=== PATIENT | female | born 1985 | race Caucasian/White ===

== ENCOUNTER → 2023-06-24 17:04 | Outpatient (REF) | payer BC, SELFPAY | LOC: RAD 17:04 | PROVIDERS: ATTENDING PHYSICIAN Physician Assistant Medical; FAMILY PHYSICIAN Emergency Medicine | DX: M54.2 Cervicalgia (principal) | CPT/HCPCS: 72052 ==

== ENCOUNTER → 2023-07-09 09:00 | Outpatient (REF) | payer BC, SELFPAY | LOC: WDC 09:00 | PROVIDERS: ATTENDING PHYSICIAN Obstetrics & Gynecology Gynecology | DX: N63.10 Unspecified lump in the right breast, unspecified quadrant (principal); N63.11 Unspecified lump in the right breast, upper outer quadrant | CPT/HCPCS: 76642; 77062; 77066 ==

== ENCOUNTER → 2023-07-15 15:16 | Outpatient (REF) | payer BC, SELFPAY | LOC: HWRAD 15:16 | PROVIDERS: ATTENDING PHYSICIAN Emergency Medicine | DX: E07.89 Other specified disorders of thyroid (principal) | CPT/HCPCS: 76536 ==

== ENCOUNTER 2023-11-24 02:43 | Emergency (ER) | payer BC, SELFPAY ==
[2023-11-24 02:43] VITALS: BP 154/94
--- NOTE | 2023-11-24 03:30 | ED.GENMED ---
History of Present Illness
<Juan C Alejandro [facility] - Last Filed: 11/24/23 05:57>
General
Chief Complaint: Abdominal Symptoms
Time Seen by Provider: 11/24/23 03:11
History of Present Illness
History of Present Illness:
Patient is a 38 y/o female with no significant PMHx presenting with urinary sx x6 days. She states on she began to experience left flank discomfort, dysuria, and incomplete emptying. She states these symptoms were mild put continued to
persist. She also states she was experiencing increased bloating, gas, and epigastric discomfort after meals. She states she started taking omeprazole with no relief. She states she went to an urgent care yesterday and they got a urine dipstick and
started her on Bactrim. She states that around 01:30am this morning she started experiencing some heart palpitations and suprapubic discomfort with urination. She states she is still experiencing left flank pressure. She states she no longer has
dysuria or incomplete emptying. She states that one week ago she had some spotting after intercourse which was unusual for her. She states she started a new control 4 months ago and her periods have been irregular. She denies any vagina
discharge, hematuria, fever, nausea, vomiting, SOB, chest pain.
Phy Exam
<Juan C Alejandro [facility] - Last Filed: 11/24/23 05:57>
Physical Exam
Physical Exam:
GENERAL: Alert , in no apparent distress
EYE: pupils equal and reactive
Throat: Airway intact, no exudates
NECK: Supple, no significant adenopathy.
CARDIAC: Regular rate and rhythm .
LUNGS: Clear breath sounds bilaterally, no acute respiratory distress, no wheezes/rales/rhonchi
ABDOMEN: Mild diffuse abdominal discomfort with palpation. Abdomen is soft and nondistended. No cva tenderness.
NEUROLOGICAL: Alert and oriented, no focal neuro deficits
SKIN: Warm and dry, skin intact.
MUSCULOSKELETAL: No edema, well perfused.
PSYCH: Normal and appropriate interaction.
Course
<Juan C Aljeandro [facility] - Last Filed: 11/24/23 05:57>
Orders/Labs/Results
Orders:
Orders
11/24/23 03:54
EKG [Electrocardiogram (*1)] Urgent
Reason for Study: Palpitations
11/24/23 03:57
0.9% Sodium Chloride 1000 ml [Nss] 1,000 ml IV BOLUS
11/24/23 04:29
CT Abd/pel Without Iv Or Oral Urgent
Comment:
Reason For Exam: left flank pain, hematuria
11/24/23 04:31
Complete Blood Count/With Diff Urgent
Comprehensive Metabolic Panel Urgent
HCG, Serum Qualitative Screen Urgent
Magnesium Urgent
PTT Urgent
Prothrombin Time Urgent
TSH Urgent
Troponin I Urgent
11/24/23 04:36
Urinalysis Reflex To Culture Urgent
Date Specimen was Collected: 11/24/23
Time Specimen was Collected: 04:32
11/24/23 04:42
Test Result ONCE
11/24/23 04:44
Add On- LAB Urgent
Tests Added?: serum hcg
11/24/23 05:52
Magnesium Citrate [Citroma] 300 ml PO ONCE ONE
Abnormal Lab Results
11/24/23
04:31
Glucose 108 H mg/dl
(70-99)
ALT 73 H U/L
(0-35)
11/24/23 04:31
11/24/23 04:31
Vital Signs
Initial and Last Documented VS:
Initial Vital Signs
Temp Pulse Resp BP Pulse Ox
99 F 100 20 154/94 98
11/24/23 02:43 11/24/23 02:43 11/24/23 02:43 11/24/23 02:43 11/24/23 02:43
Last Documented Vital Signs
Temp Pulse Resp BP Pulse Ox
99 F 92 16 123/95 97
11/24/23 02:43 11/24/23 04:30 11/24/23 04:30 11/24/23 04:29 11/24/23 04:30
<Jose Enrique Sam, DO - Last Filed: 11/24/23 06:09>
Orders/Labs/Results
Orders:
Orders
11/24/23 03:54
EKG [Electrocardiogram (*1)] Urgent
Reason for Study: Palpitations
11/24/23 03:57
0.9% Sodium Chloride 1000 ml [Nss] 1,000 ml IV BOLUS
11/24/23 04:29
CT Abd/pel Without Iv Or Oral Urgent
Comment:
Reason For Exam: left flank pain, hematuria
11/24/23 04:31
Complete Blood Count/With Diff Urgent
Comprehensive Metabolic Panel Urgent
HCG, Serum Qualitative Screen Urgent
Magnesium Urgent
PTT Urgent
Prothrombin Time Urgent
TSH Urgent
Troponin I Urgent
11/24/23 04:36
Urinalysis Reflex To Culture Urgent
Date Specimen was Collected: 11/24/23
Time Specimen was Collected: 04:32
11/24/23 04:42
Test Result ONCE
11/24/23 04:44
Add On- LAB Urgent
Tests Added?: serum hcg
11/24/23 05:52
Magnesium Citrate [Citroma] 300 ml PO ONCE ONE
Abnormal Lab Results
11/24/23
04:31
Glucose 108 H mg/dl
(70-99)
ALT 73 H U/L
(0-35)
11/24/23 04:31
11/24/23 04:31
Vital Signs
Initial and Last Documented VS:
Initial Vital Signs
Temp Pulse Resp BP Pulse Ox
99 F 100 20 154/94 98
11/24/23 02:43 11/24/23 02:43 11/24/23 02:43 11/24/23 02:43 11/24/23 02:43
Last Documented Vital Signs
Temp Pulse Resp BP Pulse Ox
99 F 92 16 123/95 97
11/24/23 02:43 11/24/23 04:30 11/24/23 04:30 11/24/23 04:29 11/24/23 04:30
<Juan C Alejandro [facility] - Last Filed: 11/24/23 05:57>
MDM/Problems Addressed
Differential Diagnosis Includes:
Patient's CBC shows no inflammatory process. CMP shows no electrolyte abnormalities. UA shows no UTI or blood. Troponin are negative. EKG is negative. CT shows large stool burden. Will discharge patient with magnesium citrate. Patient educated to
increase water intake and if symptoms worsen return to ED.
<VALENTÍN Leon - Last Filed: 11/24/23 05:57>
*Radiology
Radiology exam reviewed: radiology read reviewed (CT abd/pelvis: No obstructing renal stone. Bladder normal. No cholecystitis or pancreatitis. Abdominal aorta of normal caliber. Appendix is normal. Constipation without bowel obstruction or
diverticulitis.)
*Pulse Oximetry
Patient hypoxic: no
*EKG
Interpreted by ED Provider?: Yes
EKG Intrepretation Date: 11/24/23
Interpretation: abnormal
Comparison EKG: no comparison EKG present
Heart Rate: 91
Rate: normal
Rhythm: sinus
[place]: normal axis
Interval: normal interval
QRS Pattern: right bundle branch block
Ischemia: no ischemia
*Mechanical Service Representative Interpretation
Rate: Mechanical Service Representative- N/A
*Critical Care Note
Total Time (30-74mins, 75-104mins- exclusive of procedures): Not Applicable
<Jose Enrique Sam DO - Last Filed: 11/24/23 06:09>
Update Note
Update Note:
CT abdomen and pelvis without IV contrast
IMPRESSION:
No obstructing renal stone. Bladder normal.
No cholecystitis or pancreatitis. Abdominal aorta normal caliber. Appendix is normal. Constipation without bowel obstruction or diverticulitis. Abdominal aorta is of normal caliber.
Finalized at 5:49 AM EST
ED Attending Note
<VALENTÍN Leon - Last Filed: 11/24/23 05:57>
-
Portions of this chart may have been created with voice recognition software.� Occasional wrong word or��sound alike� substitutions may have occurred due to the inherent limitations of voice recognition software.
<Jose Enrique Sam DO - Last Filed: 11/24/23 06:09>
ED Attending Note
Patient seen and examined by attending physician: Yes
I performed the substantive portion of visit, reviewed & personally made and approve the management plan that is documented in note by myself or MARTHA.: Yes
ED Attending Note:
Pleasant 38-year-old female that presents with diffuse abdominal pain. She has had urinary symptoms for the last 6 days she did report left flank pain. Patient was seen in urgent care yesterday had a urinalysis which showed proteinuria so she was
started on antibiotic for 'UTI'. A Friend who is a physician advised her to come to the emergency department to get a CAT scan to rule out kidney stone. Patient denies fever, chills, nausea or vomiting. Patient was seen in conjunction with the PA
student. I have reviewed and agree with the history and treatment plan presented. On my independent physical exam, patient is awake, alert, and oriented x3, no acute distress. Heart is regular rate and rhythm. Lungs are clear to auscultation
bilaterally. Abdomen soft nontender nondistended no hepatosplenomegaly. Negative McBurney's point tenderness. Negative Crum sign. Moves all 4 extremities. Skin is warm and dry. Good distal pulses.
EKG shows normal sinus rhythm rate of 91 with normal intervals, normal axis. Incomplete right bundle branch block present. Tubals 148 ms. No evidence of acute ischemia present. No previous EKG available for comparison.
Discharge Plan
Departure
Patient Disposition: Home (Routine Discharge)
Date of Disposition: 11/24/23
Time of Disposition: 06:07
Patient with high blood pressure during this ER visit?: Yes
Condition: Good
Discharge Problem:
Constipation, Abdominal pain
Instructions: Clear Liquid Diet, Constipation, Adult (DC), Abdominal Pain, BLOOD PRESSURE
Referrals:
Valerie Clinton MD [Family Provider] - Call in 1-3 days for appt
Activity Restrictions/Additional Instructions:
Please take one half the bottle of magnesium citrate provided. If you do not have results after 6 hours, take the other half a bottle.
It was a pleasure meeting you and taking part in your care. We hope for your continued healing and wellness.
Please read discharge instructions in their entirety. However, they are for general education and may not describe your exact diagnosis at discharge. Information on your ER visit and medical conditions were discussed with you along with appropriate
follow up information...
If indicated, please take your medications as instructed and indicated on discharge paperwork.
Please schedule a follow up appointment as directed. Call to schedule an appointment
Please return to the emergency department with ANY change in, persisting, or worsening of symptoms. If any of your symptoms do not improve, or persist, or become more severe within 6-12 hours, please return to the emergency department for further
care.
Please return to the emergency department if you develop a headache, neck pain/stiffness, fever greater than 100.4F, chest pain, shortness of breath, persistent nausea, vomiting, slurred speech, difficulty walking, numbness/tingling, weakness, signs
of infection or any other symptoms that are worrisome to you.
If you have any questions or concerns please do not hesitate to call the Hospital at or E-mail me directly at [email or web address]
Interventions
Interventions:
*Risk Screen - Suicide Last Done: 11/24/23 02:43
*General Assessment Last Done: 11/24/23 04:30
*Neglect/Abuse Screening Last Done: 11/24/23 02:43
*ED COVID-19 Vaccine History Last Done: 11/24/23 04:30
[facility]wbkptx[facility] Assessment Last Done: 11/24/23 04:30
Discharge Date and Time
Print Language: LATVIAN
[2023-11-24 04:29] VITALS: BP 123/95
[2023-11-24 04:30] VITALS: BMI 29.1
[2023-11-24] MEDS: NSS 1000 IV (04:35)
[2023-11-24 04:47] LABS: % Basophils 0.5 % (0-2); % Eosinophils 1.2 % (0-6); % Immature Granulocytes 0.2 % (0-0.5); % Lymphocytes 26.3 % (20.5-51.1); % Monocytes 7.2 % (1.7-9.3); % Neutrophils 64.6 % (42.2-75.2); Absolute Eosinophils 0.1 10^3/uL (0-0.7); Absolute Lymphocytes 1.6 10^3/uL (1.2-3.4); Absolute Monocytes 0.4 10^3/uL (0.1-0.6); Absolute Neutrophils 3.8 10^3/uL (1.4-6.5); Hematocrit 40.5 % (37.0-47.0); Hemoglobin 13.9 g/dL (12.0-16.0); Mean Corp Hgb Conc. 34.3 g/dL (33.0-37.0); Mean Corpuscular Hgb 29.7 pg (27.0-31.0); Mean Corpuscular Volume 86.5 fL (81.0-99.0); Mean Platelet Volume 10.1 fL (7.4-10.4); Nucleated Red Blood Cells % 0 %; Platelet Count 284 10^3/uL (130-400); Red Blood Cell Count 4.68 10^6/uL (4.20-5.40); Red Cell Dist. Width 13.2 % (11.5-14.5); White Blood Cell Count 5.9 10^3/uL (4.8-10.8)
[2023-11-24 04:54] LABS: Urine Albumin Negative (Neg - Trace); Urine Bilirubin Negative (Negative); Urine Character Clear (Clear); Urine Color Yellow; Urine Glucose Negative (Negative); Urine Ketone Negative (Negative); Urine Leukocyte Negative (Negative); Urine Nitrite Negative (Negative); Urine Occult Blood Negative (Negative); Urine Urobilinogen Negative (Neg - 1+)
[2023-11-24 04:58] LABS: HCG, Serum Qualitative Screen Negative
[2023-11-24 05:02] LABS: ALT (SGPT) 73 U/L (0-35); AST (SGOT) 36 U/L (14-36); Albumin 4.2 g/dl (3.5-5.0); Alkaline Phosphatase 75 U/L (38-126); Blood Urea Nitrogen 9 mg/dl (7-17); Calcium 9.1 mg/dl (8.4-10.2); Carbon Dioxide 28 mmol/L (22-30); Chloride 105 mmol/L (98-107); Estimated Creatinine Clearance 92 ml/min; Glucose 108 mg/dl (70-99); Magnesium 2.1 mg/dl (1.6-2.3); Potassium 3.9 mmol/L (3.5-5.1); Sodium 138 mmol/L (135-145); Total Bilirubin 0.5 mg/dl (0.2-1.3); Total Protein 6.9 g/dl (6.3-8.2); eGFR > 60.00
[2023-11-24 05:07] LABS: INR 1.01; PT 13.1 Sec (11.4-14.6)
[2023-11-24 05:08] LABS: APTT 25.9 Sec (23.4-35.0)
[2023-11-24 05:12] LABS: Troponin I < 0.012 ng/ml
[2023-11-24 05:31] LABS: TSH 3.23 uIU/ml (0.47-4.68)
[2023-11-24] MEDS: CITROMA 300 ML PO (06:19)
== END 2023-11-24 06:35 | disposition home or self-care (01) ==
LOC: EMR 02:43
PROVIDERS: EMERGENCY PHYSICIAN Student in an Organized Health Care Education/Training Program; FAMILY PHYSICIAN Emergency Medicine
DX: K59.00 Constipation, unspecified (principal); R10.9 Unspecified abdominal pain; R00.2 Palpitations; R03.0 Elevated blood-pressure reading, without diagnosis of hypertension; I45.10 Unspecified right bundle-branch block; Z88.6 Allergy status to analgesic agent
CPT/HCPCS: 99284; 96360; 74176; 80053; 81003; 83735; 84443; 84484; 84703; 85025; 85610; 85730; 93005